=== PATIENT | female | born 1960 | race Caucasian/White ===

== ENCOUNTER 2017-11-24 16:43 | Emergency (ER) | payer OTHER ==
[2017-11-24] MEDS ORDERED: Sodium Chloride 0.9% 2.5 ML Syringe FLUSH PRN (17:13)
[2017-11-24] MEDS ORDERED: Sodium Chloride 0.9% 10 ML Syringe FLUSH PRN (17:13)
[2017-11-24] MEDS ORDERED: Sodium Chloride 0.9% 1,000 ML IV ONE (17:13)
--- NOTE | 2017-11-24 17:22 | EDM.PDOC ---
ED HPI GENERAL MEDICAL PROBLEM - General Stated Complaint: WEAKNESS/GENERAL Time Seen by Provider: 11/24/17 17:07 - History of Present Illness INITIAL COMMENTS - FREE TEXT/NARRATIVE: HISTORY AND PHYSICAL: History of present illness: The patient is a 57-year-old female who presents via EMS for persistent alteration in mental status that has been progressive and ongoing since Tuesday of this week, 4 days ago. The patient denies everything and says she has no chest pain no fevers no cough no abdominal pain no nausea vomiting or diarrhea but she only complains of hemorrhoid pain and bleeding from her hemorrhoids. She tells me she has a history of diverticulitis and diverticular disease and says she drank when she was younger but has not had anything to drink recently. She has no liver or renal disease. She offers no further history other than having generalized weakness and malaise and not eating much over the last 2 days. According to her son she was in [place] last week for a trip Tuesday through Tuesday and according to family she was having persistent vomiting in her bathroom and she was having bleeding which they were not sure if it was per rectum or with the vomiting. The patient returned from [place] and according to the son she he did not know of any issues other than some generalized weakness and her complaints of hemorrhoid pain. Starting Tuesday night into Tuesday the patient was having progressive weakness and alteration of her baseline mental status and she was sent home from work on Tuesday for same. According to the son her live-in boyfriend was having difficulty getting her out of bed and she has been spending most of the time in the bed. She has not had any trauma until today when she rolled out of bed but did not pass out and she states she has no head neck or back pain as a result of that. She has not been eating or drinking for at least 2 days. She has not had any vomiting according to the family but they did say that there was blood in the bathtub and they're not sure where it was coming from. They noticed this today. EMS has been to the house multiple times today each time the patient refusing to come here and the family feeling that she was improving. The patient also tells nursing she had a viral illness prior to going to [place] but that has improved. The son says that the patient has been self-medicating at home taking [id number] Tylenol PM and NyQuil and other medications but he is not sure why she was taking them The computer says the patient has a history of a rectovaginal fistula and the patient doesn't specifically say that to me but she says she started to have some surgery in that area for repair this summer. Review of systems: As per history of present illness and below otherwise all systems reviewed and negative. Past medical history: As per history of present illness and as reviewed below otherwise noncontributory. Surgical history: As per history of present illness and as reviewed below otherwise noncontributory. Social history: No reported history of drug or alcohol abuse. Family history: As per history of present illness and as reviewed below otherwise noncontributory. Physical exam: Gen.: Well-developed well-nourished thin female who is nontoxic and is answering questions appropriately and is alert and oriented to person place and time. 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 HEENT: Atraumatic, normocephalic, pupil on the left is reactive, negative for conjunctival pallor or scleral icterus, mucous membranes tacky throat clear, neck supple, nontender, trachea midline. No palpable scalp deformities or tenderness and no tenderness or defects/step-offs of the cervical spine Lungs: Clear to auscultation, breath sounds equal bilaterally, chest nontender. No worker breathing or sensory muscle use Heart: S1S2, regular rhythm and slightly bradycardic rate, negative for clicks, rubs, or JVD. Abdomen: Soft, nondistended, nontender. Scaphoid abdomen with hypoactive bowel sounds and no old scars are seen. There is tympany on percussion and a volume of gas on percussion. There is no tenderness and no rebound or guarding but the exam is difficult as the patient doesn't want to relax because she keeps telling me she "feels tense". On palpation in the upper abdominal area more on the right there is either a mass or hepatomegaly but is difficult to assess well due to the patient's lack of relaxation. Negative for costovertebral tenderness. Pelvis: Stable nontender. Genitourinary: Deferred. Rectal: On rectal exam there is no external masses visualized and tone is intact and on minimal digital exam I am unable to appreciate any masses but the patient is very resistant to the exam. There is a blood in the perineum area and it is not copious nor is it aggressive but there is some blood on the underwear as well and it is unclear if it's coming from the vagina or from the rectum. In the perineal area there are 2 pieces of old tissue/paper towel that are very foul and malodorous smelling and have greenish yellow secretions along with blood. The patient would not allow me to do much with vaginal exam. There is gross erythema of the entire perirectal area extending up to the coccyx and some early breakdown is seen. There are 2 areas at the right buttocks cheek just outside of the perianal area that may be a component of the rectovaginal fistula the patient has a history of but there is no gross drainage but there is some scant bleeding from that area. There is no discrete tenderness. At the left buttock cheek there is an area of eschar pressure ulcer that is seen likely from her dependent status over the last few days and this is not fluctuant but there is surrounding erythema Extremities: Atraumatic, negative for cords or calf pain. Neurovascular unremarkable. There is pedal edema to just below the knees 1+ to 2+ which the paramedics told me has a been increasing throughout the day today. There is no overt leg asymmetry Neuro: Awake, alert, oriented. Cranial nerves II through XII unremarkable. . Motor is grossly diminished throughout with a 2/5 throughout but it is equal supervisor maintenance strength is a little better at 3/5; sensory unremarkable throughout. Exam nonfocal. Back: There are no midline step-offs tenderness defects of the thoracic or lumbar spine and no visible soft tissue evidence of trauma such as ecchymosis or abrasions or erythema. Skin: There is a slight yellowish hue to her facial and upper body skin turgor is diminished and veins are very flat. There are no evidence of any ecchymosis abrasions or rashes Diagnostics: EKG CBC CMP BNP UA Tylenol and aspirin levels of ammonia amylase lipase troponin INR EtOH level CT scan of the head lactic acid chest x-ray CPK CT scan of the abdomen and pelvis, ABG Therapeutics: IV O2 monitor IV fluids D50 protonix calcium gluconate sodium bicarbonate lactulose 1 unit of packed red blood cells Procedure note: When we were unable to get peripheral access I did attempt an EJ IV line on the right neck 2 in 2 different locations and was unsuccessful. The patient tolerated the procedure well and there is no complications. I discussed this case with our hospitalist and due to the liver dysfunction renal dysfunction and anemia and probable abdominal process along with GI bleed/ rectovaginal bleed he feels the patient would be best served by transfer. I discussed all testing results with the patient who is more aware of the severity of her disease I have also discussed the testing results with the son. I will give the patient a dose of lactulose as well as calcium and bicarbonate. I discussed this case with [facility] ER doctor Dr. Staton at 1820 5 PM and he accepts the patient for transfer. He is aware of the medications that we will be giving as well as the unit of blood. Flight team has been notified and will be available for transport. Critical care time excluding procedures:60min Impression: Anemia likely secondary to GI/gynecologic bleeding, metabolic acidosis with acute renal failure and liver failure/elevated liver function tests, altered mental status and progressive, persistent hypoglycemia due to poor by mouth intake and hyperammonemia Definitive disposition and diagnosis as appropriate pending reevaluation and review of above. - Related Data Allergies Allergy/AdvReac Type Severity Reaction Status Date / Time No Known Allergies Allergy Verified 11/24/17 17:41 Home Meds: Home Meds . [No Known Home Meds] 11/24/17 [History] Past Medical History Cardiovascular History: Reports: Hypertension Gastrointestinal History: Reports: Diverticulosis, Gastritis, Other (See Below) Other Gastrointestinal History: states possible fistula vaginal/rectal Musculoskeletal History: Reports: Arthritis Psychiatric History: Reports: Anxiety Oncologic (Cancer) History: Reports: Malignant Melanoma Other Oncologic History: remission for melanoma - Past Surgical History HEENT Surgical History: Reports: Other (See Below) Social & Family History - Tobacco Use Smoking Status *Q: Never Smoker Years of Tobacco use: 0 Used Tobacco, but Quit: Yes Month Tobacco Last Used: 30 years ago Second Hand Smoke Exposure: No - Alcohol Use Days Per Week of Alcohol Use: 0 Number of Drinks Per Day: 5 Total Drinks Per Week: 0 - Recreational Drug Use Recreational Drug Use: No ED ROS GENERAL - Review of Systems Review Of Systems: ROS reveals no pertinent complaints other than HPI. ED EXAM, GENERAL - Physical Exam Exam: See Below (See dictation) Course - Vital Signs Last Recorded V/S: Last Vital Signs Temp 35.7 C 03/01/18 16:43 Pulse Resp BP Pulse Ox - Orders/Labs/Meds Orders: Active Orders 24 hr Category Date Time Status Cardiac Monitoring [RC] . DIRECTED Care 11/24/17 17:11 Active EKG Documentation Completion [RC] STAT Care 11/24/17 17:11 Active Oxygen Therapy, ED [RC] ASDIRECTED Care 11/24/17 17:11 Active Pulse Oximetry [RC] ASDIRECTED Care 11/24/17 17:11 Active Abdomen Pelvis wo Cont [CT] Stat Exams 11/24/17 17:52 Ordered Chest 1V Frontal [CR] Stat Exams 11/24/17 17:14 Ordered Head wo Cont [CT] Stat Exams 11/24/17 17:12 Ordered BLOOD GAS ARTERIAL [BG] Stat Lab 11/24/17 18:02 Ordered RED BLOOD CELLS LP [BBK] Stat Lab 11/24/17 17:00 Results TYPE AND SCREEN [BBK] Stat Lab 11/24/17 17:00 Results Calcium Gluconate Med 11/24/17 18:30 Once 1 gm IVPUSH ONETIME ONE Lactulose [Chronulac] Med 11/24/17 18:30 Once 30 gm PO ONETIME ONE Sodium Bicarbonate [Sodium Bicarbonate 8.4%] Med 11/24/17 18:30 Once 50 meq IVPUSH ONETIME ONE Sodium Chloride 0.9% [Saline Flush] Med 11/24/17 17:13 Active 10 ml FLUSH ASDIRECTED PRN Sodium Chloride 0.9% [Saline Flush] Med 11/24/17 17:13 Active 2.5 ml FLUSH ASDIRECTED PRN Saline Lock Insert [OM.PC] Stat Oth 11/24/17 17:11 Ordered Transfuse PRBC [Transfuse Red Blood Cells] [COMM] Stat Oth 11/24/17 18:10 Ordered Medication Orders Sodium Chloride (Saline Flush) 10 ml FLUSH ASDIRECTED PRN PRN Reason: Keep Vein Open Sodium Chloride (Saline Flush) 2.5 ml FLUSH ASDIRECTED PRN PRN Reason: Keep Vein Open Labs: Laboratory Tests 11/24/17 11/24/17 11/24/17 Range/Units 17:00 17:00 17:00 WBC 8.16 (4.0-11.0) K/uL RBC 2.63 L (4.30-5.90) M/uL Hgb 7.9 L (12.0-16.0) g/dL Hct 26.1 L (36.0-46.0) % MCV 99.2 H (80.0-98.0) fL MCH 30.0 (27.0-32.0) pg MCHC 30.3 L (31.0-37.0) g/dL RDW Std Deviation 79.1 H (28.0-62.0) fl RDW Coeff of Samson 23 H (11.0-15.0) % Plt Count 424 H (150-400) K/uL MPV 9.40 (7.40-12.00) fL Add Manual Diff YES Neutrophils % (Manual) 86 H (48.0-80.0) % Band Neutrophils % 1 % Lymphocytes % (Manual) 7 L (16.0-40.0) % Monocytes % (Manual) 4 (0.0-15.0) % Eosinophils % (Manual) 2 (0.0-7.0) % Nucleated RBC % 2.2 /100WBC Absolute Seg Neuts 7.0 H (1.4-5.7) Band Neutrophils # 0.1 Lymphocytes # (Manual) 0.6 (0.6-2.4) Monocytes # (Manual) 0.3 (0.0-0.8) Eosinophils # (Manual) 0.2 (0.0-0.7) Nucleated RBCs # 0 K/uL INR Lactate (0.20-2.00) mmol/L Sodium 134 L (136-145) mmol/L Potassium 5.7 H (3.5-5.1) mmol/L Chloride 99 (98-107) mmol/L Carbon Dioxide 13.5 L (21.0-32.0) mmol/L BUN 60 H (7.0-18.0) mg/dL Creatinine 4.4 H (0.6-1.0) mg/dL Est Cr Clr Drug Dosing TNP Estimated GFR (MDRD) 10.3 ml/min Glucose 114 H (74-106) mg/dL Calcium 6.8 L (8.5-10.1) mg/dL Total Bilirubin 5.0 H (0.2-1.0) mg/dL AST 1783 H (15-37) U/L ALT 144 H (14-63) U/L Alkaline Phosphatase 321 H (46-116) U/L Ammonia (19-54) ug/dL Creatine Kinase (26-308) U/L Troponin I < 0.050 (0.000-0.056) ng/mL B-Natriuretic Peptide 1866 H (<100) PG/ML Total Protein 5.5 L (6.4-8.2) g/dL Albumin 1.7 L (3.4-5.0) g/dL Globulin 3.8 H (2.0-3.5) g/dL Albumin/Globulin Ratio 0.5 L (1.3-2.8) Amylase 26 (25-115) U/L Lipase 111 (73-393) U/L Urine Color Urine Appearance Urine pH (5.0-8.0) Ur Specific Ola (1.001-1.035) Urine Protein (NEGATIVE) mg/dL Urine Glucose (UA) (NEGATIVE) mg/dL Urine Ketones (NEGATIVE) mg/dL Urine Occult Blood (NEGATIVE) Urine Nitrite (NEGATIVE) Urine Bilirubin (NEGATIVE) Urine Urobilinogen (<2.0) EU/dL Ur Leukocyte Esterase (NEGATIVE) Urine RBC (0-2/HPF) Urine WBC (0-5/HPF) Ur Epithelial Cells (NONE-FEW) Urine Bacteria (NEGATIVE) Salicylates 1.1 (0-20) mg/dL Acetaminophen 10.9 ug/mL Ethyl Alcohol 1 mg/dL Blood Type Antibody Screen Crossmatch 11/24/17 11/24/17 11/24/17 Range/Units 17:00 17:00 17:00 WBC (4.0-11.0) K/uL RBC (4.30-5.90) M/uL Hgb (12.0-16.0) g/dL Hct (36.0-46.0) % MCV (80.0-98.0) fL MCH (27.0-32.0) pg MCHC (31.0-37.0) g/dL RDW Std Deviation (28.0-62.0) fl RDW Coeff of Samson (11.0-15.0) % Plt Count (150-400) K/uL MPV (7.40-12.00) fL Add Manual Diff Neutrophils % (Manual) (48.0-80.0) % Band Neutrophils % % Lymphocytes % (Manual) (16.0-40.0) % Monocytes % (Manual) (0.0-15.0) % Eosinophils % (Manual) (0.0-7.0) % Nucleated RBC % /100WBC Absolute Seg Neuts (1.4-5.7) Band Neutrophils # Lymphocytes # (Manual) (0.6-2.4) Monocytes # (Manual) (0.0-0.8) Eosinophils # (Manual) (0.0-0.7) Nucleated RBCs # K/uL INR 1.55 Lactate 6.8 H (0.20-2.00) mmol/L Sodium (136-145) mmol/L Potassium (3.5-5.1) mmol/L Chloride (98-107) mmol/L Carbon Dioxide (21.0-32.0) mmol/L BUN (7.0-18.0) mg/dL Creatinine (0.6-1.0) mg/dL Est Cr Clr Drug Dosing Estimated GFR (MDRD) ml/min Glucose (74-106) mg/dL Calcium (8.5-10.1) mg/dL Total Bilirubin (0.2-1.0) mg/dL AST (15-37) U/L ALT (14-63) U/L Alkaline Phosphatase (46-116) U/L Ammonia 112 H (19-54) ug/dL Creatine Kinase (26-308) U/L Troponin I (0.000-0.056) ng/mL B-Natriuretic Peptide (<100) PG/ML Total Protein (6.4-8.2) g/dL Albumin (3.4-5.0) g/dL Globulin (2.0-3.5) g/dL Albumin/Globulin Ratio (1.3-2.8) Amylase (25-115) U/L Lipase (73-393) U/L Urine Color Urine Appearance Urine pH (5.0-8.0) Ur Specific Ola (1.001-1.035) Urine Protein (NEGATIVE) mg/dL Urine Glucose (UA) (NEGATIVE) mg/dL Urine Ketones (NEGATIVE) mg/dL Urine Occult Blood (NEGATIVE) Urine Nitrite (NEGATIVE) Urine Bilirubin (NEGATIVE) Urine Urobilinogen (<2.0) EU/dL Ur Leukocyte Esterase (NEGATIVE) Urine RBC (0-2/HPF) Urine WBC (0-5/HPF) Ur Epithelial Cells (NONE-FEW) Urine Bacteria (NEGATIVE) Salicylates (0-20) mg/dL Acetaminophen ug/mL Ethyl Alcohol mg/dL Blood Type Antibody Screen Crossmatch 11/24/17 11/24/17 11/24/17 Range/Units 17:00 17:00 18:00 WBC (4.0-11.0) K/uL RBC (4.30-5.90) M/uL Hgb (12.0-16.0) g/dL Hct (36.0-46.0) % MCV (80.0-98.0) fL MCH (27.0-32.0) pg MCHC (31.0-37.0) g/dL RDW Std Deviation (28.0-62.0) fl RDW Coeff of Samson (11.0-15.0) % Plt Count (150-400) K/uL MPV (7.40-12.00) fL Add Manual Diff Neutrophils % (Manual) (48.0-80.0) % Band Neutrophils % % Lymphocytes % (Manual) (16.0-40.0) % Monocytes % (Manual) (0.0-15.0) % Eosinophils % (Manual) (0.0-7.0) % Nucleated RBC % /100WBC Absolute Seg Neuts (1.4-5.7) Band Neutrophils # Lymphocytes # (Manual) (0.6-2.4) Monocytes # (Manual) (0.0-0.8) Eosinophils # (Manual) (0.0-0.7) Nucleated RBCs # K/uL INR Lactate (0.20-2.00) mmol/L Sodium (136-145) mmol/L Potassium (3.5-5.1) mmol/L Chloride (98-107) mmol/L Carbon Dioxide (21.0-32.0) mmol/L BUN (7.0-18.0) mg/dL Creatinine (0.6-1.0) mg/dL Est Cr Clr Drug Dosing Estimated GFR (MDRD) ml/min Glucose (74-106) mg/dL Calcium (8.5-10.1) mg/dL Total Bilirubin (0.2-1.0) mg/dL AST (15-37) U/L ALT (14-63) U/L Alkaline Phosphatase (46-116) U/L Ammonia (19-54) ug/dL Creatine Kinase 123 (26-308) U/L Troponin I (0.000-0.056) ng/mL B-Natriuretic Peptide (<100) PG/ML Total Protein (6.4-8.2) g/dL Albumin (3.4-5.0) g/dL Globulin (2.0-3.5) g/dL Albumin/Globulin Ratio (1.3-2.8) Amylase (25-115) U/L Lipase (73-393) U/L Urine Color ORANGE Urine Appearance CLEAR Urine pH 5.0 (5.0-8.0) Ur Specific Ola 1.025 (1.001-1.035) Urine Protein 30 (NEGATIVE) mg/dL Urine Glucose (UA) NEGATIVE (NEGATIVE) mg/dL Urine Ketones 15 H (NEGATIVE) mg/dL Urine Occult Blood TRACE-INTACT (NEGATIVE) Urine Nitrite POSITIVE H (NEGATIVE) Urine Bilirubin LARGE H (NEGATIVE) Urine Urobilinogen 0.2 (<2.0) EU/dL Ur Leukocyte Esterase NEGATIVE (NEGATIVE) Urine RBC 2-3 (0-2/HPF) Urine WBC 0-1 (0-5/HPF) Ur Epithelial Cells FEW (NONE-FEW) Urine Bacteria FEW (NEGATIVE) Salicylates (0-20) mg/dL Acetaminophen ug/mL Ethyl Alcohol mg/dL Blood Type B POSITIVE Antibody Screen NEGATIVE Crossmatch See Detail Meds: Medications Generic Name Dose Route Start Last Admin Trade Name Freq PRN Reason Stop Dose Admin Sodium Chloride 10 ml 11/24/17 17:13 Saline Flush FLUSH ASDIRECTED PRN Keep Vein Open Sodium Chloride 2.5 ml 11/24/17 17:13 Saline Flush FLUSH ASDIRECTED PRN Keep Vein Open Discontinued Medications Generic Name Dose Route Start Last Admin Trade Name Freq PRN Reason Stop Dose Admin Sodium Chloride 1,000 mls @ 999 mls/hr 11/24/17 17:13 Normal Saline IV 11/24/17 18:13 STAT ONE Pantoprazole Sodium 80 mg 11/24/17 17:27 Protonix Iv IVPUSH 11/24/17 17:28 .BOLUS ONE Departure - Departure Time of Disposition: 18:34 Disposition: DC/[facility]fer to [facility] 02 Condition: Critical Clinical Impression: Gastrointestinal hemorrhage, Hyperammonemia, Metabolic acidosis Acute renal failure Qualifiers: Acute renal failure type: unspecified Qualified Code(s): N17.9 - Acute kidney failure, unspecified Liver failure Qualifiers: Liver failure chronicity: acute Hepatic coma status: without hepatic coma Qualified Code(s): K72.00 - Acute and subacute hepatic failure without coma Anemia Qualifiers: Anemia type: unspecified type Qualified Code(s): D64.9 - Anemia, unspecified - Discharge Information Referrals: PCP,None [Primary Care Provider] - - My Orders Last 24 Hours: My Active Orders 11/24/17 17:00 RED BLOOD CELLS LP [BBK] Stat TYPE AND SCREEN [BBK] Stat 11/24/17 17:11 Cardiac Monitoring [RC] . DIRECTED EKG Documentation Completion [RC] STAT Oxygen Therapy, ED [RC] ASDIRECTED Pulse Oximetry [RC] ASDIRECTED Saline Lock Insert [OM.PC] Stat 11/24/17 17:12 Head wo Cont [CT] Stat 11/24/17 17:13 Sodium Chloride 0.9% [Saline Flush] 10 ml FLUSH ASDIRECTED PRN Sodium Chloride 0.9% [Saline Flush] 2.5 ml FLUSH ASDIRECTED PRN 11/24/17 17:14 Chest 1V Frontal [CR] Stat 11/24/17 17:52 Abdomen Pelvis wo Cont [CT] Stat 11/24/17 18:02 BLOOD GAS ARTERIAL [BG] Stat 11/24/17 18:10 Transfuse PRBC [Transfuse Red Blood Cells] [COMM] Stat 11/24/17 18:30 Calcium Gluconate 1 gm IVPUSH ONETIME ONE Lactulose [Chronulac] 30 gm PO ONETIME ONE Sodium Bicarbonate [Sodium Bicarbonate 8.4%] 50 meq IVPUSH ONETIME ONE - Assessment/Plan Last 24 Hours: My Active Orders 11/24/17 17:00 RED BLOOD CELLS LP [BBK] Stat TYPE AND SCREEN [BBK] Stat 11/24/17 17:11 Cardiac Monitoring [RC] . DIRECTED EKG Documentation Completion [RC] STAT Oxygen Therapy, ED [RC] ASDIRECTED Pulse Oximetry [RC] ASDIRECTED Saline Lock Insert [OM.PC] Stat 11/24/17 17:12 Head wo Cont [CT] Stat 11/24/17 17:13 Sodium Chloride 0.9% [Saline Flush] 10 ml FLUSH ASDIRECTED PRN Sodium Chloride 0.9% [Saline Flush] 2.5 ml FLUSH ASDIRECTED PRN 11/24/17 17:14 Chest 1V Frontal [CR] Stat 11/24/17 17:52 Abdomen Pelvis wo Cont [CT] Stat 11/24/17 18:02 BLOOD GAS ARTERIAL [BG] Stat 11/24/17 18:10 Transfuse PRBC [Transfuse Red Blood Cells] [COMM] Stat 11/24/17 18:30 Calcium Gluconate 1 gm IVPUSH ONETIME ONE Lactulose [Chronulac] 30 gm PO ONETIME ONE Sodium Bicarbonate [Sodium Bicarbonate 8.4%] 50 meq IVPUSH ONETIME ONE
[2017-11-24] MEDS ORDERED: Pantoprazole 40 MG Vial IVPUSH ONE (17:27)
[2017-11-24 17:55] LABS: CHLORIDE,CL 99 mmol/L (98-107); SODIUM,NA 134 mmol/L (136-145)
--- NOTE | 2017-11-24 17:55 | PCM.SN ---
- Free Text/Narrative Note: Called for IV start. Aseptic technique using ultrasound 18 ga started in both AC x 1 attempt per IV start. Saline locked and secured with dressing and tape.
[2017-11-24] MEDS ORDERED: 50% Dextrose in Water 50 ML Syringe ONE (18:00)
[2017-11-24 18:07] LABS: ACETAMINOPHEN 10.9 ug/mL
[2017-11-24] MEDS ORDERED: Calcium Gluconate 10% 1 GM/10 ML SDV IVPUSH ONE (18:30)
[2017-11-24] MEDS ORDERED: Lactulose Soln 10 GM/15 ML 15 ML UD Cup PO ONE (18:30)
[2017-11-24] MEDS ORDERED: Sodium Bicarbonate 8.4% 50 MEQ/50 ML Syringe IVPUSH ONE (18:30)
[2017-11-24] MEDS ORDERED: cefTRIAXone 1 GM in Premix Bag 1 BAG IV ONE (18:59)
[2017-11-24 19:33] VITALS: BP 80/51
--- NOTE | 2017-11-25 12:01 | CT ---
EXAM DATE: 11/24/17 PATIENT'S AGE: 57 Patient: JACKIE MITCHELL Facility: [place], [place] Site . Site : 1960 Study: CT Head [id number]/1/2018 6:32:53 PM Ordering Physician: Naseem Quintero Final Report: INDICATION: weakness, AMS, renal failure TECHNIQUE: CT Head without contrast. COMPARISON: None. FINDINGS: There is no sign of intracranial hemorrhage or mass effect. Bifrontal lobe atrophy. The hanley-white differentiation is preserved. Scattered dural calcifications. No acute disease of the visualized paranasal sinuses and mastoid air cells. No fracture evident. No scalp hematoma/laceration. IMPRESSION: No acute intracranial process. Dictated by: Raj Gallego MD @ 11/24/2017 18:54:39 (Electronic Signature) Report Signed by Proxy. [facility]
--- NOTE | 2017-11-25 12:09 | CR ---
EXAM DATE: 11/24/17 PATIENT'S AGE: 57 Patient: JACKIE MITCHELL Facility: [place], [place] Site . Site : 1960 Study: XRay Chest [id number]/1/2018 6:33:16 PM Ordering Physician: Naseem Quintero Final Report: Indication: Weakness Technique: Chest 1 view Comparison: July 13, 2014. Findings/Impression: Cardiovascular and mediastinum: Heart size and vasculature are normal in caliber and appearance. Mediastinum is within normal limits. Lungs and pleural space: Lungs are clear. No sign of infiltrate or mass. No sign of pleural effusion. No pneumothorax. Bones and soft tissues: No significant findings. Dictated by Tatyana Elkins MD @ Nov 24 2017 6:43PM (Electronic Signature) Report Signed by Proxy. [facility]
--- NOTE | 2017-11-25 12:13 | CT ---
EXAM DATE: 11/24/17 PATIENT'S AGE: 57 Patient: JACKIE MITCHELL Facility: [place], [place] Site . Site : 1960 Study: CT Abdomen/Pelvis [id number]/2018 6:37:31 PM Ordering Physician: Naseem Quintero Final Report: HISTORY: Abdominal distention, renal failure and liver failure. Altered mental status. TECHNIQUE: The abdomen and pelvis were scanned using helical technique at 3 mm intervals without IV or oral contrast. Sagittal and coronal reconstructions were performed. COMPARISON: 22 Feb 2012. FINDINGS: Lung bases: Mild atelectatic lung present in the posterior lung bases. Liver and gallbladder: The liver is massive measuring 29 cm in length. The left lobe of the liver measures 18.7 cm in size. There is diffusely hypodense consistent with fatty infiltration. The medial segment left lobe of the liver is the least affected. No calcified gallstones. No intrahepatic ductal dilatation is appreciated. Spleen, pancreas and adrenal glands: Spleen is normal size. The unenhanced pancreatic parenchyma is unremarkable. Adrenal glands unremarkable. Kidneys and bladder: The right kidney is displaced inferiorly and medially by the enlarged liver. No calcified urolithiasis or hydronephrosis. Bladder is decompressed. Retroperitoneum and lymph nodes: The abdominal aorta is normal in caliber and has some calcification within its wall. No pathologic zana aortic or pelvic sidewall lymphadenopathy is seen. There are small inguinal lymph nodes present. GI tract: Small amount of fluid is seen at the stomach. The stomach is displaced laterally and posteriorly. No dilated small bowel loops are seen. There is some gas seen in the ascending, transverse and sigmoid colon. The descending colon is decompressed. There is a amorphous increased density seen in the right posterior aspect of the rectum. This measures 3.6 x 3.0 cm on axial image 143 there is a least 3 cm in height. There is a band of density which extends inferiorly to the right of midline. Abdominal wall: Diffuse increased density in the subcutaneous fat consistent with anasarca. Pelvic organs: Unremarkable. Osseous structures: No suspicious lytic or blastic lesions are seen. Vertebral body heights maintained. IMPRESSION: 1. Massive hepatomegaly with diffuse hypodensity most consistent with fatty infiltration. The medial segment left lobe of the liver is the least affected. No intrahepatic ductal dilatation seen. Evaluation is limited without IV contrast. 2. No calcified urolithiasis or hydronephrosis. 3. 3.6 cm x 3.0 cm amorphous mass or density seen along the right aspect of the rectum. This extends inferiorly into the soft tissues. Differential diagnoses include perirectal abscess or neoplasia. Evaluation is limited without IV contrast. Dictated by Carolina Pineda MD @ 11/24/2017 6:57:28 PM Dictated by: Carolina Pineda MD @ 11/24/2017 18:58:38 (Electronic Signature) Report Signed by Proxy. [email or web address]
== END 2017-11-24 19:30 ==
LOC: MW.ED 16:43
DX: D50.0 Iron deficiency anemia secondary to blood loss (chronic) (principal); K72.00 Acute and subacute hepatic failure without coma; N17.9 Acute kidney failure, unspecified; E72.20 Disorder of urea cycle metabolism, unspecified; E87.2 Acidosis; E16.2 Hypoglycemia, unspecified; I10 Essential (primary) hypertension; Z87.891 Personal history of nicotine dependence
CPT/HCPCS: 36415; 36430; 36600; 70450; 71045; 74176; 80053; 81001; 82140; 82150; 82550; 82803; 82962; 83605; 83690; 83880; 84484; 85025; 85610; 86850; 86900; 86901; 86920; 86921; 86922; 87086; 93005; 96361; 96365; 96374; 96375; 96376; 99291; 99292; C9113; G0480; J7060; P9016; 36410; 99285